=== PATIENT | female | born 1990 | race African-American/Black ===

== ENCOUNTER 2017-09-11 03:16 | Emergency (ER) | payer SELFPAY ==
[~2017-09-11] VITALS: Ht 165.1 cm; Wt 68.0 kg
[2017-09-11 03:48] LABS: BASO # 0.1 x10^3/uL (0.0-0.2); BASO % 1 % (0-3); EOS % 0 % (0-3); HEMATOCRIT 37.6 % (36.0-47.0); HEMOGLOBIN 12.6 g/dL (12.0-15.5); LYMPH % 19 % (24-48); MEAN CORPUSCULAR HEMOGLOBIN 31 pg (25-35); MEAN CORPUSCULAR HGB CONC 34 g/dL (31-37); MEAN CORPUSCULAR VOLUME 93 fL (80-96); MONO % 7 % (0-9); NEUT % 73 % (31-73); PLATELET COUNT 211 x10^3/uL (140-400); RED BLOOD COUNT 4.07 x10^6/uL (3.50-5.40); RED CELL DISTRIBUTION WIDTH 12.9 % (11.5-14.5); WHITE BLOOD COUNT 10.7 x10^3/uL (4.0-11.0)
[2017-09-11 03:48] LABS: BILIRUBIN,URINE NEGATIVE (NEG); GLUCOSE,URINE NEGATIVE (NEG); NITRITE,URINE NEGATIVE (NEG); PH,URINE 5.5; PROTEIN,URINE NEGATIVE (NEG-TRACE); UROBILINOGEN,URINE 0.2 mg/dL (0.2 mg/dL)
[2017-09-11 03:53] LABS: BACTERIA,URINE 0 /HPF (0-FEW); RBC,URINE 0 /HPF (0-2); SQUAMOUS EPITHELIAL CELL,UR FEW /LPF; WBC,URINE 0 /HPF (0-4)
[2017-09-11 03:55] LABS: BARBITURATES NEG (NEG); BENZODIAZEPINES NEG (NEG); CANNABINOIDS POS (NEG); COCAINE NEG (NEG); METHADONE NEG (NEG); OPIATES NEG (NEG); PHENCYCLIDINE NEG (NEG)
[2017-09-11 04:01] LABS: CALCIUM 8.9 mg/dL (8.5-10.1); CREATININE 0.8 mg/dL (0.6-1.0); GFR 103.3; POTASSIUM 3.5 mmol/L (3.5-5.1)
[2017-09-11 04:07] LABS: ALBUMIN 3.9 g/dL (3.4-5.0); TOTAL BILIRUBIN 0.7 mg/dL (0.2-1.0)
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
[2017-09-11] MEDS ORDERED: IV NORMAL SALINE 1000ML BAG 1,000 ML IV ONE (07:15)
[2017-09-11] MEDS ORDERED: MULTIVIT INFUSN,ADULT 4,VIT K 10 ML, FOLIC ACID 1 MG, THIAMINE 100 MG in IV DEXTROSE 5%... IV ONE (07:30)
--- NOTE | 2017-09-11 08:37 | RAD ---
AP and lateral left knee radiographs 09/11/2017 Clinical history: Left knee pain. Portable AP and lateral digital radiographs of the left knee were obtained. No fracture or dislocation of the left knee is seen. No significant degenerative changes are noted. There is no radiographic evidence of a joint effusion. Impression: Negative study.
--- NOTE | 2017-09-11 08:40 | RAD ---
AP and lateral left tibia and fibula radiographs 09/11/2017 Clinical history: Left leg pain. AP and lateral portable digital radiographs of the left tibia and fibula were obtained. The majority of the left ankle joint is not included on the AP radiograph. No fracture or dislocation of the left tibia or fibula is seen. No radiopaque foreign body is noted. Linear soft tissue calcification is seen involving the anterior soft tissues of the mid/distal lower left leg. Impression: No acute osseous abnormality is seen.
[2017-09-11 10:36] VITALS: BP 95/53
== END 2017-09-11 11:33 | disposition short-term general hospital (02) ==
LOC: ER 03:16
DX: F10.10 Alcohol abuse, uncomplicated (principal); F15.10 Other stimulant abuse, uncomplicated; T74.21XA Adult sexual abuse, confirmed, initial encounter; S20.319A Abrasion of unspecified front wall of thorax, initial encounter; S30.810A Abrasion of lower back and pelvis, initial encounter; M25.562 Pain in left knee; M79.605 Pain in left leg; Y07.9 Unspecified perpetrator of maltreatment and neglect; Y90.7 Blood alcohol level of 200-239 mg/100 ml
CPT/HCPCS: 36415; 51701; 73560; 73590; 80053; 80307; 81001; 81025; 84702; 85025; 96365; 96375; 99285; G0480; J2060; J7030; G0479